=== PATIENT | male | born 1970 | race Caucasian/White ===

== ENCOUNTER 2020-04-05 22:32 | Emergency (ER) | payer MEDICARE, MEDICAID ==
[2020-04-05] MEDS ORDERED: Diphtheria,Pertussis(Acell),Tetanus Vaccine 0.5 ML Syringe IM ONE (22:48)
--- NOTE | 2020-04-05 22:56 | EDM.PDOC ---
ED HPI GENERAL MEDICAL PROBLEM - General Chief Complaint: Laceration Stated Complaint: LEFT BIG TOE LACERATION Time Seen by Provider: 04/05/20 22:39 Source of Information: Reports: Patient History Limitations: Reports: No Limitations - History of Present Illness INITIAL COMMENTS - FREE TEXT/NARRATIVE: Patient is a 49-year-old male who presents to the emergency department with complaints of a laceration to the medial aspect of his left great toe. States he cut it on the shower drain while showering. He is unsure when his last tetanus vaccination was. - Related Data Allergies Allergy/AdvReac Type Severity Reaction Status Date / Time No Known Allergies Allergy Verified 04/05/20 22:49 Home Meds: Home Meds . [No Known Home Meds] 04/05/20 [History] ED ROS GENERAL - Review of Systems Review Of Systems: Comprehensive ROS is negative, except as noted in HPI. ED EXAM, SKIN/RASH Exam: See Below Exam Limited By: No Limitations General Appearance: Alert, WD/WN, No Apparent Distress Respiratory/Chest: No Respiratory Distress, Lungs Clear, Normal Breath Sounds, No Accessory Muscle Use, Chest Non-Tender Cardiovascular: Normal Peripheral Pulses, Regular Rate, Rhythm, No Edema, No Gallop, No JVD, No Murmur, No Rub Skin: Warm, Dry, Normal Color, No Rash, Other (2.5 cm superficial, linear laceration to the medial aspect of the left great toe. Patient essentially peeled the outer layer of the epidermis off the surface. Wound is not gaping.) ED SKIN PROCEDURES - Laceration/Wound Repair Left Medial Toe - Great Appearance: Superficial Distal NVT: Neuro & Vascular Intact Skin Prep: Chlorhexidine (Hibiciens), Saline Exploration/Debridement/Repair: No Foreign Material Found Closed with: Steri-Strips Lac/Wound length In cm: 2.5 # of Sutures: 4 Sterile Dressing Applied: Nurse Tetanus Status Addressed: Yes Complications: No Course - Orders/Labs/Meds Orders: Active Orders 24 hr Category Date Time Status Vaccines to be Administered [RC] PER UNIT ROUTINE Care 04/05/20 22:48 Active Meds: Medications Discontinued Medications Generic Name Dose Route Start Last Admin Trade Name Freq PRN Reason Stop Dose Admin Diphtheria/Tetanus/Acell Pertussis 0.5 ml 04/05/20 22:48 Adacel IM 04/05/20 22:49 .ONCE ONE Departure - Departure Time of Disposition: 22:55 Disposition: Home, Self-Care 01 Condition: Good Clinical Impression: Laceration - Discharge Information Instructions: Laceration Care, Adult, [id number] Referrals: Cris Hernandez PA-C [Primary Care Provider] - Additional Instructions: You were seen in the emergency department today for a laceration to your left toe. On exam, the laceration is superficial and does not require sutures. Steri-Strips have been applied. These should fall off in the next couple days. Keep the wound clean and dry. Watch for signs of infection including increased redness, swelling, purulent drainage. If these should occur you should be seen in the clinic or return to the ER. This vaccination was updated today, therefore you are good for 10 years on this. - My Orders Last 24 Hours: My Active Orders 04/05/20 22:48 Vaccines to be Administered [RC] PER UNIT ROUTINE - Assessment/Plan Last 24 Hours: My Active Orders 04/05/20 22:48 Vaccines to be Administered [RC] PER UNIT ROUTINE
== END 2020-04-05 23:00 | disposition home or self-care (01) ==
LOC: JD.ED 22:32
DX: S91.112A Laceration without foreign body of left great toe without damage to nail, initial encounter (principal); Z23 Encounter for immunization; W26.9XXA Contact with unspecified sharp object(s), initial encounter
CPT/HCPCS: 12001; 90471; 90715; 99282